=== PATIENT | male | born 1930 | race Caucasian/White ===

== ENCOUNTER 2019-01-25 11:57 | Day surgery (SDC) | payer MEDICARE, OTHER ==
[~2019-01-25] VITALS: Ht 182.9 cm; Wt 83.9 kg
[2019-01-25] MEDS ORDERED: TENORMIN 5050 MG/TAB PO (12:56)
[2019-01-25] MEDS ORDERED: IMDUR 30MG30 MG/TAB PO (12:57)
[2019-01-25] MEDS ORDERED: CRESTOR40 MG PO (12:59)
[2019-01-25] MEDS ORDERED: GLUCOPHAGE1000 MG PO (12:59)
[2019-01-25] MEDS ORDERED: ASPIRIN 81M81 MG/TA2 PO (13:00)
[2019-01-25] MEDS ORDERED: DIABETA 2.5MG2.5 MG PO (13:01)
[2019-01-25] MEDS ORDERED: NORCO 325 MG-7.1 TAB PO (13:03)
[2019-01-25 13:13] VITALS: BP 144/70; PULSE 58; TEMP 98
--- NOTE | 2019-01-25 13:16 | NUR ---
PATIENT ARRIVED TO ROOM 322-2, OUTPATIENT. PATIENT SETTELED INTO ROOM. INITIAL ASSESSMENT COMPLETE BY SWIMMING POOL SERVICEPERSON.
--- NOTE | 2019-01-25 14:20 | NUR ---
PATIENT ADMISSION ASSESSMENT COMPLETE. SEE ASSESSMENT B. PATIENT IS PLEASANT AND IS A&OX4. VSS. IV FLUIDS INFUSING TO LEFT FOREARM IV VIA PUMP. PATIENT RATING HIS PAIN A 4/10 ON A 0-10 SCALE. PATIENT DENIES NEEDS FOR PAIN MEDICATION AT THIS TIME. PATIENT CONSENT FORM FOR PROCEDURE SIGNED AND PRESENT ON PATIENT CHART. CALL LIGHT WITHIN REACH. PATIENT DENIES ANY NEEDS AT THIS TIME.
--- NOTE | 2019-01-25 15:53 | NUR ---
PATIENT RATING HIS PAIN A 6/10 ON A 0-10 SCALE IN THE LEFT-SIDE OF HIS BACK. PATIENT DESCRIBES HIS PAIN A CONSTANT DULL PAIN. PATIENT GIVEN A DOSE OF IV TORADOL. FAMILY PRESENT AT THE BEDSIDE. NO OTHER NEEDS AT THIS TIME.
--- NOTE | 2019-01-25 16:30 | NUR ---
PATIENT IV FLUIDS TO GRAVITY FLOW TUBING AND INFUSING TO LEFT FOREARM IV. PATIENT RATING HIS PAIN A 4/10 ON A 0-10 SCALE AFTER TORADOL DOSE. CONSENT FORM ON PATIENT CHART. PATIENT TAKEN TO [facility]-OP VIA BED BY RUBEN LEE.
[2019-01-25 18:00] VITALS: BP 163/66; PULSE 62; TEMP 97.7
--- NOTE | 2019-01-25 18:00 | NUR ---
PATIENT ARRIVED TO ROOM 322-2 VIA BED FROM PACU. PATIENT IS SLIGHTLY DROWSY BUT AROUSABLE. IV FLUIDS INFUSING VIA GRAVITY FLOW TUBING. POST-OP VSS. PATIENT DENIES PAIN AT THIS TIME. CALL LIGHT WITHIN REACH. DINNER TRAY ORDERED. PATIENT DENIES ANY OTHER NEEDS AT THIS TIME.
[2019-01-25 18:15] VITALS: BP 158/78; PULSE 16
[2019-01-25 18:30] VITALS: BP 168/69; PULSE 61
[2019-01-25 18:45] VITALS: BP 144/63; PULSE 65
--- NOTE | 2019-01-25 18:45 | NUR ---
PATIENT SITTING UP IN BED WITH FAMILY PRESENT AT THE BEDSIDE. DINNER TRAY FINISHED. PATIENT IS EATING AND DRINK AND DENIES PAIN AT THIS TIME. PATIENT NEEDS TO VOID TO MEET REQUIREMENTS FOR DISCHARGE THIS EVENING. CALL LIGHT WITHIN REACH. IV FLUIDS INFUSING VIA GRAVITY FLOW TUBING. REPORT GIVEN TO RUBEN ROWLAND.
[2019-01-25 21:02] VITALS: BP 125/44; PULSE 70; TEMP 97.9
--- NOTE | 2019-01-26 03:43 | NUR ---
Patient voided about 2100 this evening. Family stated he had a 200-[address] back home and wanted to stay the night. Post-op vitals within normal limits. Patient has voided x1 after the 2100 void. PRN pain medication effective. Denies any needs. Will continue to monitor patient.
[2019-01-26 03:47] VITALS: BP 153/71; PULSE 62; TEMP 97.6
[2019-01-26 07:14] VITALS: BP 169/65; PULSE 61; TEMP 97.7
--- NOTE | 2019-01-26 07:50 | NUR ---
NOTIFIED OF PATIENT STAYING OVERNIGHT DUE TO THE PATIENT NOT VOIDING UNTIL AFTER 2129. PATIENT [place]ES OVER [address] FAMILY DID NOT FEEL COMFORTABLE LEAVING THAT LATE IN THE EVENING.
--- NOTE | 2019-01-26 08:00 | NUR ---
PATIENT IS A&OX4. HEART MURMUR NOTED, OTHERWISE VSS. 3+ PITTING EDEMA TO BLE. LEFT FOREARM INT. SEE AM ASSESSMENT.
--- NOTE | 2019-01-26 09:50 | NUR ---
INGA met with the patient and patient's family to discuss discharge plan. The patient lives in [place] with his son, Dwayne. He reports independence with ADLs and has a cane and walker. The patient's PCP is Dr. Chavez in [place] and he receives his medications at [facility]. He reports no difficulties obtaining his meds. The patient does not have advanced directives in EMR, but his daughter (Mariza) reports that he does have them completed and that she is his DPOA-HC. The patient plans to return home with his son upon discharge. No additional needs at this time.
--- NOTE | 2019-01-26 10:00 | NUR ---
PATIENT'S LEFT FOREARM INT DISCONTINUED PER PENDING DISCHARGE. TIP INTACT. PATIENT TOLERATED WELL. DISCHARGE INSTRUCTIONS REVIEWED WITH PATIENT AND FAMILY. PATIENT PERSONAL BELONGINGS GATHERED. PATIENT GIVEN 2 TABLETS OF NORCO PRIOR TO DISCHARGE. PATIENT TAKEN TO PERSONAL VEHICLE VIA WHEELCHAIR BY SURGICAL STAFF. PATIENT DISCHARGED.
== END 2019-01-26 10:00 | disposition home or self-care (01) ==
LOC: SDCO 11:57 → SURG 11:57 → SDCO 14:49 → SURG 14:50 → SDCO 14:50 → SURG 14:50
DX: N20.1 Calculus of ureter (principal); I10 Essential (primary) hypertension; E11.9 Type 2 diabetes mellitus without complications; Z79.84 Long term (current) use of oral hypoglycemic drugs; Z87.442 Personal history of urinary calculi; Z79.899 Other long term (current) drug therapy; Z79.82 Long term (current) use of aspirin; Z90.81 Acquired absence of spleen; Z90.49 Acquired absence of other specified parts of digestive tract; Z96.652 Presence of left artificial knee joint; Z87.19 Personal history of other diseases of the digestive system; Z87.448 Personal history of other diseases of urinary system; R42 Dizziness and giddiness; L57.0 Actinic keratosis; M48.061 Spinal stenosis, lumbar region without neurogenic claudication; Z88.5 Allergy status to narcotic agent; Z83.3 Family history of diabetes mellitus
CPT/HCPCS: C1769; G0378; G0379; J0690; J1100; J1885; J2405; J2704; J3010; J7030; Q9967

== ENCOUNTER 2020-06-23 13:43 | Day surgery (SDC) | payer MEDICARE, OTHER ==
[2020-06-23] VITALS (9 sets, daily range): BP systolic 125–186; BP diastolic 48–88; PULSE 58–70; TEMP 97.6–98.3
[~2020-06-23] VITALS: Ht 180.3 cm; Wt 75.8 kg
[~2020-06-23 13:43] MED LIST: ASPIRIN 81M81 MG/TA2 PO; CRESTOR40 MG PO; DIABETA 2.5MG2.5 MG PO; GLUCOPHAGE1000 MG PO; IMDUR 30MG30 MG/TAB PO; NORCO 325 MG-7.1 TAB PO; TENORMIN 5050 MG/TAB PO
[2020-06-23] MEDS ORDERED: NORCO 325 MG-7.1 TAB PO (15:46)
[2020-06-23] MEDS ORDERED: TENORMIN 5050 MG/TAB PO (15:47)
[2020-06-23] MEDS ORDERED: GLUCOTROL 5M5 MG/TAB PO (15:48)
[2020-06-23] MEDS ORDERED: IMDUR 30MG30 MG/TAB PO (15:49)
[2020-06-23] MEDS ORDERED: MAG-OX 400400 MG/TAB PO (15:51)
[2020-06-23] MEDS ORDERED: GLUCOPHAGE1000 MG PO (15:52)
[2020-06-23] MEDS ORDERED: ONE-A-DAY ESSE1 EACH PO (15:52)
[2020-06-23] MEDS ORDERED: PROTONIX 40MG T40 MG PO (15:53)
[2020-06-23] MEDS ORDERED: CRESTOR40 MG PO (15:54)
[2020-06-23] MEDS ORDERED: ZOLOFT 25MG25 MG PO (15:55)
--- NOTE | 2020-06-23 18:31 | NUR ---
Patient to room in bed from PACU. Alert and oriented x4. Denies nausea. Having discomfort at catheter site and says that he keeps having the feeling that he needs to urinate. Horner todependent drainage with bloody urine in bag. Oriented to room.
--- NOTE | 2020-06-23 20:00 | NUR ---
Pt currently lying in bed and has his call light within reach. Pt has no complaints of pain at this time but his blood pressure is running 184/79. Blood pressure was rechecked and is still elevated. Dr. Jimenez was contacted at this time. He wanted pt to take take his Atenolol if he hadn't taken it this morning. Pt had taken his mediation. Dr. Jimenez wanted him to have 30 mg of IV at this time. Pt blood pressure are being monitor to see if there is any improvement.
--- NOTE | 2020-06-23 22:00 | NUR ---
Pt is currenly resting in bed. Pt stated that he was feeling like he really had to void but couldn't. Pt was irrigated at this time. Pt did have some large clots that were removed. Pt stated that this was such a relief. Pt urine was still nieves read but is was clearing up. Pt tolerated this very well. pt has his call light within reach. Pt was also able to ambulate to the restroom and he had a small bowel movement.
--- NOTE | 2020-06-24 00:40 | NUR ---
Pt stated that he was having pressure again. Pt was irrigated at this time. There were just a few clots that were removed at this time. Pt is currently resting in bed ans has his call light within reach. His blood pressures has improved.
[2020-06-24 01:33] VITALS: BP 141/69
[2020-06-24 03:28] VITALS: BP 123/83; PULSE 65; TEMP 97.5
[2020-06-24 09:00] VITALS: BP 109/57; PULSE 58; TEMP 97.5
--- NOTE | 2020-06-24 10:30 | NUR ---
Patient alert and oriented, answers questions appropriately. See assessment. Horner catheter patent and draining bloody urine. No c/o at this time.
[2020-06-24 12:03] VITALS: BP 108/60; PULSE 60; TEMP 97.6
[2020-06-24 15:33] VITALS: BP 115/67; PULSE 51; TEMP 97.2
--- NOTE | 2020-06-24 15:57 | NUR ---
SW met with patient at his bedside to complete intake assessment. Patient was eating earlier, and so SW opted to come back later. SW met with patient again at 245 to complete intake. Patient indicated that he resides in [facility], and that he lives alone. Patient reports that his daughter Mariza [phone] is his EMR and care support. Patient did not provide phone number as he indicated that her number was in his records. Patient reports useing a walker and a wheelchair and that his PCP is Dr. Ortiz. Patient reports that he does not have an upcoming appointment. Patient reports that he gets his medications from [facility] in [facility] with no concerns. Patient reports already receiving home health services, however he was not sure of the name of the facility. This SW looked in patients records which indicated that patients son Karsten was the person to notify at [phone]. Karsten reports that patient gets his care from [facility] and that services just started. SW did attempt to look up agency with no success. SW will continue to follow.
--- NOTE | 2020-06-24 16:33 | NUR ---
Horner catheter irrigated with 25ml sterile water. Bloody urine returned.
[2020-06-24 20:10] VITALS: BP 112/53; PULSE 55; TEMP 95.2
--- NOTE | 2020-06-24 21:57 | NUR ---
HAND IRRIGATED CATHETER FOR RETURN OF MULTIPLE CLOTS. URINE REMAINS DARK RED. CATHETER CARES GIVEN AT THIS TIME. PT IS ALERT AND ORIENTED X4. TUOLUMNE. IVF INFUSING TO LEFT HAND WITHOUT REDNESS OR SWELLING. TAKES HS MEDS WITHOUT PROBLEM. DENIES PAIN OR FEELING OF FULLNESS IN BLADDER.
--- NOTE | 2020-06-25 | NUR ---
URINE REMAINS DARK BLOODY, DRAINING OK, PT DENIES FEELING NEED TO VOID. IVF CONTINUE AT 60CC/HR TO LEFT HAND, NO REDNESS OR SWELLING.
[2020-06-25 00:01] VITALS: BP 118/56; PULSE 58; TEMP 97.5
[2020-06-25 04:00] VITALS: BP 121/50; PULSE 53; TEMP 96
[2020-06-25 07:19] VITALS: BP 153/78; PULSE 55; TEMP 97.3
--- NOTE | 2020-06-25 09:00 | NUR ---
Patient alert and oriented, answers questions appropriately. See assessment. Horner catheter patent and draining clear red urine, no clots noted. No c/o at this time.
--- NOTE | 2020-06-25 09:30 | NUR ---
Horner catheter discontinued per drs order, no complications. Carlota care completed. Education provided on six bottle routine.
[2020-06-25 10:42] VITALS: BP 154/81; PULSE 56; TEMP 97.8
--- NOTE | 2020-06-25 12:30 | NUR ---
Received phone call from patients daughter, Valery swab done in [place], [place] on this past has resulted positive. Lost Charge Card Clerk and Dr Torres notified. Patient placed in isolation.
--- NOTE | 2020-06-25 15:43 | NUR ---
Discharge instructions reviewed with patient, verbalized understanding. Discharged via wheelchair to auto/home with family at 1445.
== END 2020-06-25 14:45 | disposition home or self-care (01) ==
LOC: SDCO 13:43 → SURG 18:22 → SDCO 19:30
DX: C67.9 Malignant neoplasm of bladder, unspecified (principal); I10 Essential (primary) hypertension; E66.9 Obesity, unspecified; N17.9 Acute kidney failure, unspecified; Z96.652 Presence of left artificial knee joint; Z79.84 Long term (current) use of oral hypoglycemic drugs; Z88.5 Allergy status to narcotic agent; Z91.048 Other nonmedicinal substance allergy status; E78.5 Hyperlipidemia, unspecified; I25.10 Atherosclerotic heart disease of native coronary artery without angina pectoris; K21.9 Gastro-esophageal reflux disease without esophagitis; F32.9 Major depressive disorder, single episode, unspecified
CPT/HCPCS: OP; C1769; C2617; J0690; J1940; J2405; J2704; J3010; J7030; J7042; J7120; Q9967